=== PATIENT | female | born 1955 | race African-American/Black ===

== ENCOUNTER 2018-05-10 09:59 | Inpatient (IN) | payer MEDICARE ==
--- NOTE | 2018-05-05 02:17 | NUR ---
AMBULATES TO REST ROOM WITH STAND BY ASSISTANCE.VOIDED.PT BACK TO BED.USING ICS.SCD IS IN PLACE.HOB IS ELEVATED. Addendum: 05/11/18 at 0226 by Conchis Lees RN WRONG DATE.
[2018-05-07 12:45] LABS: BASOPHILS % 0.2 % (0.0-1.0); EOSINOPHILS # (AUTO) 0.1 (0.0-0.4); EOSINOPHILS % 1.4 % (0.0-6.0); HEMATOCRIT 35.9 % (34.2-44.1); LYMPHOCYTES # (AUTO) 1.5 (1.0-3.2); LYMPHOCYTES % 15.8 % (18.0-39.1); MEAN CORPUSCULAR HEMOGLOBIN 26.5 pg (28-32); MEAN CORPUSCULAR HGB CONC 30.6 g/dL (31-35); MEAN CORPUSCULAR VOLUME 86.5 fL (81-99); MONOCYTES # (AUTO) 0.7 (0.2-0.8); MONOCYTES % 7.8 % (4.4-11.3); NEUTROPHILS % 74.3 % (38.7-80.0); PLATELET COUNT 321 x10e3/uL (140-360); RED BLOOD COUNT 4.15 x10e6/uL (3.6-5.1); RED CELL DISTRIBUTION WIDTH 15.3 % (11.7-14.4)
[2018-05-07 13:00] LABS: CALCIUM 9.5 mg/dL (8.4-10.2); CREATININE, SERUM 1.36 mg/dL (0.57-1.11)
--- NOTE | 2018-05-07 13:23 | Diagnostic Imaging Report ---
Frontal and lateral views of the chest. HISTORY: PRE ADMIT, gastric sleeve surgery COMPARISON: None available. DISCUSSION: Soft tissue attenuation partially limits sensitivity of the exam. Lungs: Low lung volumes result in bibasilar vascular crowding, accentuation of the pulmonary interstitial markings, central pulmonary vasculature, and the cardiac silhouette. Allowing for these limitations, the findings are as follows: No evidence of a consolidative pneumonia or pulmonary alveolar edema. Pleura: No pleural effusion or pneumothorax. Heart and mediastinum: The cardiomediastinal silhouette appears unremarkable. Bones: No acute osseous lesion. Other: Metallic clips in the right upper quadrant of the abdomen are compatible with prior cholecystectomy. IMPRESSION: No acute radiographic abnormality. Signed by: Dr. Gerald Cristobal D.O., M.M.M. on 05/07/2018 1:19 PM
[~2018-05-10] VITALS: Ht 162.6 cm; Wt 136.1 kg
[~2018-05-10 09:59] MED LIST: ASPIRIN81 MG PO; CARVEDILOL12.5 MG PO; FUROSEMIDE40 MG PO; LOSARTAN POTAS100 MG PO; TRESIBA; Z ACTOPLUS MET; Z.0.ACCUPRIL40 MG; Z.0.CLONIDINE HCL0.1 PO; Z.0.NORVASC10 MG; Z.1.HYDROCHLOROTH12.
--- OUTSIDE RECORDS SUMMARY | 2018-05-10 10:01 | XMS REPORT ---
Author [facility] Address Unknown Phone Unavailable Care Team Providers Care Child Guidance Counselor Name Role Phone Gene RING Unavailable Unavailable Problems This patient has no known problems. Allergies, Adverse Reactions, Alerts This patient has no known allergies or adverse reactions. Medications This patient has no known medications. Encounters Start Date/Time End Date/Time Encounter Type Admission Type Attending [facility] Facility Care Department Encounter ID 2017-10-16 09:10:41 2017-10-16 09:10:41 Outpatient [facility] [id number] 2017-10-02 00:00:00 2017-10-02 00:00:00 Outpatient [facility] [id number] 2017-09-16 00:00:00 2017-09-16 00:00:00 Outpatient [facility] [id number] 2017-09-10 08:27:27 2017-09-10 08:27:27 Outpatient [facility] [id number] 2017-09-10 07:20:11 2017-09-10 07:20:11 Outpatient [facility] [id number] 2017-08-21 08:39:23 2017-08-21 08:39:23 Outpatient [facility] [id number] 2017-07-31 17:06:12 2017-07-31 17:06:12 Outpatient [facility] [id number] 2017-07-31 15:19:59 2017-07-31 15:19:59 Outpatient [facility] [id number] 2017-07-06 15:39:54 2017-07-06 15:39:54 Outpatient [facility] [id number] 2017-06-24 00:00:00 2017-06-24 00:00:00 Outpatient [facility] [id number] 2017-06-12 00:00:00 2017-06-12 00:00:00 Outpatient [facility] [id number] 2017-06-09 09:51:31 2017-06-09 09:51:31 Outpatient [facility] [id number] 2017-06-09 08:01:12 2017-06-09 08:01:12 Outpatient [facility] [id number] 2017-05-14 00:00:00 2017-05-14 00:00:00 Outpatient [facility] [id number] 2017-05-12 00:00:00 2017-05-12 00:00:00 Outpatient [facility] [id number] 2017-05-01 09:34:51 2017-05-01 09:34:51 Outpatient [facility] [id number] 2017-05-01 08:06:34 2017-05-01 08:06:34 Outpatient [facility] [id number] 2016-10-15 14:00:15 2016-10-15 14:00:15 Outpatient [facility] [id number] 2016-10-15 13:12:52 2016-10-15 13:12:52 Outpatient [facility] [id number] 2016-10-06 07:14:25 2016-10-06 07:14:25 Outpatient [facility] [id number] 2016-10-06 00:00:00 2016-10-06 00:00:00 Outpatient [facility] [id number] 2016-09-24 11:18:31 2016-09-24 11:18:31 Outpatient [facility] [id number] 2016-09-24 00:00:00 2016-09-24 00:00:00 Outpatient [facility] [id number] 2016-06-02 12:56:10 2016-06-02 12:56:10 Outpatient [facility] [id number] 2016-05-30 14:54:52 2016-05-30 14:54:52 Outpatient [facility] [id number] 2016-05-30 14:53:54 2016-05-30 14:53:54 Outpatient [facility] [id number] Results Test Description Test Time Test Comments Text Results Atomic Results Result Comments CHEST 2 VIEWS 2018-05-07 13:18:00 [place] [address] Patient Name: DUY THURSTON MR #: [id number] : 1955 Age/Sex: 63/F Req #: [id number] Adm Physician: Ordered by: SHARMILA RING MD Report #: [id number] Location: OR Room/Bed: Procedure: [id number] DX/CHEST 2 VIEWS Exam Date: 05/07/18 Exam Time: 1220 REPORT STATUS: Signed Frontal and lateral views of the chest. HISTORY: PRE A DMIT, gastric sleeve surgery COMPARISON: None available. DISCUSSION: Soft tissue attenuation partially limits sensitivity of the exam. Lungs: Low lung volumes result in bibasilar vascular crowding, accentuation of the pulmonary interstitial markings, central pulmonary vasculature, and the cardiac silhouette. Allowing for these limitations, the findings are as follows: No evidence of a consolidative pneumonia or pulmonary alveolar edema. Pleura: No pleural effusion or pneumothorax. Heart and mediastinum: The cardiomediastinal silhouette appears unrem arkable. Bones: No acute osseous lesion. Other: Metallic clips in the right upper quadrant of the abdomen are compatible with prior cholecystectomy. IMPRESSION: No acute radiographic abnormality. Signed by: Nicholas JohnstonOTosin, M.M.M. on 05/07/2018 1:19 PM Dictated By: MATTHEW CAMPA DO 1319 Transcribed By: ZEENAT on 05/07/188 COPY TO: SHARMILA RING MD
[2018-05-10] MEDS ORDERED: CEFAZOLIN SOD 2 GM/D5W 50ML 50 ML IV ONE (10:17)
[2018-05-10] MEDS ORDERED: ACETAMINOPHEN 1000 MG/100 ML 100 ML IV ONE (10:44)
[2018-05-10] MEDS ORDERED: FAMOTIDINE 20 MG/2 ML VIAL IV ONE (10:44)
[2018-05-10] MEDS ORDERED: LIDOCAINE HCL (LTA) 4 ML SOLN ONE (10:44)
[2018-05-10] MEDS ORDERED: MORPHINE SULFATE 2 MG/ML SYR IV PRN (10:45)
[2018-05-10] MEDS ORDERED: SCOPOLAMINE 1.5 MG PATCH TOP SCH (11:30)
[2018-05-10] MEDS ORDERED: LABETALOL HCL 20 ML ONE (12:33)
[2018-05-10] MEDS ORDERED: HYDRALAZINE HCL 20 MG/ML VIAL ONE (12:53)
--- NOTE | 2018-05-10 14:12 | Operative Report ---
DATE OF PROCEDURE: May 10, 2018 PREOPERATIVE DIAGNOSES 1. Morbid obesity, body mass index 52. 2. Diabetes mellitus. 3. Hypertension. POSTOPERATIVE DIAGNOSES 1. Morbid obesity, body mass index 52. 2. Diabetes mellitus. 3. Hypertension. PREOP INDICATIONS: Treat disease, prevent complications related to comorbid conditions of obesity. PROCEDURE: Laparoscopic vertical sleeve gastrectomy. ANESTHESIA: General. SANDER MACHINE: Munir Benedict, surgical airplane first officer (needed due to complexity of case). FLUIDS: 1 liter of crystalloid. EBL: 30 mL. DRAINS: None. COMPLICATIONS: None. SPECIMENS: Partial stomach. GRAFTS: None. FINDINGS 1. Normal upper GI anatomy. 2. Negative intraoperative EGD leak test. PROCEDURAL DETAILS: The patient was brought to the operating room and was intubated under general endotracheal anesthesia. She was positioned supine with both arms abducted and all pressure points appropriately padded. She was sterilely prepped and draped in the usual fashion. A preprocedure pause was performed, identifying the patient's name, perioperative antibiotics, intended procedure, and staff surgeon. A primary 5-mm left subcostal incision was made, and a Veress needle was inserted to insufflate the abdomen to a pressure of 15 mmHg pressure. A 0-degree, 5-mm Optiview trocar was placed under direct visualization. No injuries were noted. Four additional trocars were placed in the standard positions. The liver retractor was used to expose the hiatus in the proximal stomach. I began my dissection by mobilizing the greater curvature of the stomach by ligating the gastroepiploic and posterior short gastric vessels using the [place] LigaSure device. This dissection was from about 4 cm proximal to the pyloric valve to the left wilian of the diaphragm. Once this was completed, an adult-size endoscope was placed along the lesser curvature of the stomach to be used as a bougie. The greater curvature of the stomach was excised using multiple firings of an 16-mm purple-load Endo OUMAR Covidien stapling device reinforced with Seamguard. The greater curvature specimen was then removed through the right periumbilical port site. An intraoperative EGD leak test was performed, and no leaks were identified. I then achieved and verified hemostasis. I closed the large port site with #0 Vicryl suture using the Ck-Laure technique in a figure-of-8 fashion. The liver retractor was removed, the abdomen was desufflated, and all the trocars were removed. We closed the incision sites with 4-0 Monocryl suture in subcuticular fashion and applied 0.25% bupivacaine in both the preperitoneal incision sites. Dermabond dressings were applied. The patient tolerated the procedure well. Type of wound was type 2, clean and contaminated. All surgical sponge and instrument counts were correct. Job#: [id number]
[2018-05-10] MEDS ORDERED: FENTANYL CITRATE/PF 100MCG/2 ML INJ ONE ×2 (14:58→18:37)
[2018-05-10 15:54] VITALS: BP 197/88
--- NOTE | 2018-05-10 16:00 | NUR ---
Blood pressure noted to be elevated. 197/88. Rechecked manually and noted at 180/88. Call placed to MD to renew home medications
[2018-05-10] MEDS: CARVEDILOL 12.5 MG TAB PO SCH (16:51)
--- NOTE | 2018-05-10 16:52 | NUR ---
Received patient from OR. Patient breathing even and unlabored no signs of distress noted. Call light within reach, bed in lowest position, wheels locked, side rails up x2. Patient notified to call for assistance during ambulation.
[2018-05-10 17:01] VITALS: BP 180/88
--- NOTE | 2018-05-10 17:09 | NUR ---
Patient A/O X3. Breathing unlabored, no signs of distress. Last bowel movement 05/09/18. Bowel sounds present. Incision sites are clean, dry, and intact. Knee-high damaris hose in place and sequential compression device bilaterally. Patient has voided since surgery. Non-skid socks on patient, call light in reach, bed in lowest position, wheels locked. Will continue to monitor.
[2018-05-10] MEDS ORDERED: LIDOCAINE HCL 2% LOCAL INJ 5 ML SDV VIAL INJ ONE (18:15)
[2018-05-10] MEDS ORDERED: EPHEDRINE SULFATE INJ 50 MG/10 ML SYR ONE (18:15)
[2018-05-10] MEDS ORDERED: PROPOFOL IV EMULSION 10 MG/ML 20 ML VIAL ONE (18:15)
[2018-05-10] MEDS ORDERED: GLYCOPYRROLATE INJ 1MG/ 5 ML SYR ONE (18:15)
[2018-05-10] MEDS ORDERED: DEXAMETHASONE SOD PHOS INJ 4 MG/ML VIAL ONE (18:15)
[2018-05-10] MEDS ORDERED: ROCURONIUM BROMIDE 10 MG/ML 5ML VIAL ONE (18:15)
[2018-05-10] MEDS ORDERED: ONDANSETRON HCL INJ 2 MG/ML VIAL ONE (18:15)
[2018-05-10] MEDS ORDERED: SEVOFLURANE INHAL SOLN 250 ML PEN BTL ONE (18:15)
[2018-05-10] MEDS: SODIUM CHLORIDE 0.9% 1000ML 1,000 ML IV SCH ×2 (18:25→18:39)
[2018-05-10] MEDS: MORPHINE SULFATE INJ 4 MG/ML INJ IV PRN ×2 (18:26→21:45)
[2018-05-10] MEDS: ONDANSETRON HCL INJ 2 MG/ML VIAL IV PRN (18:26)
[2018-05-10] MEDS ORDERED: MIDAZOLAM HCL 2 MG/2 ML VIAL ONE (18:37)
[2018-05-10 18:49] VITALS: BP 197/88
--- NOTE | 2018-05-10 19:45 | NUR ---
REPORT TAKEN FROB MORNING RN.WALKING ROUNDS DONE.PT IS LETHARGIC.STATED THAT FEELS DIZZY.MD SMALL IN THE UNIT TO SEE THE PT.BP SHOWING HIGH. ORDERED TO GIVE BP MEDICINES PO AT BED TIME.BLOOD SUGAR MONITORED.NO RESP.DISTRESS.NO PAIN VOICED.IV NS RUNNING @ 75 ML/HR.5 TROCAR SITES NOTED ON ABDOMEN.DRY AND INTACT.BED LOCKED AND IN LOWEST POSITION.PHONE AND CALL LIGHT WITHIN REACH.INSTRUCTED TO CALL FOR ASSISTANCE NEEDED.
[2018-05-10 20:00] VITALS: BP 207/94
[2018-05-10 20:30] VITALS: BP 207/94
[2018-05-10] MEDS ORDERED: CLONIDINE HCL 0.1 MG TAB PO SCH (21:00)
[2018-05-10] MEDS: HYDRALAZINE HCL 25 MG TAB PO SCH (21:41)
[2018-05-10] MEDS: ENOXAPARIN SOD INJ 40 MG/0.4 ML SYR SC SCH (21:45)
--- NOTE | 2018-05-10 22:05 | History and Physical ---
DATE OF SERVICE: May 10, 2018. CHIEF COMPLAINT: "I had weight loss surgery today." HISTORY OF PRESENT ILLNESS: This is a 63-year-old woman who underwent successful laparoscopic sleeve gastrectomy today. The patient suffers from extreme obesity that complicates her underline hypertension, type 2 diabetes mellitus, end stage 3 chronic kidney disease. The patient currently voices no complaints. On May 07, 2018, she had BUN and creatinine of 22 and 1.36 respectively. The patient's hemoglobin on the same day was 11 g/dL. The patient had chest x-ray done on May 07, 2018, which revealed no acute radiographic abnormality, but did reveal a slightly enlarged cardiac silhouette with accentuation of pulmonary interstitial markings as well as central pulmonary vasculature. REVIEW OF SYSTEMS GENERAL: The patient lost 10 pounds by only drinking liquid diet in 1 week prior to bariatric surgery. No fever or chills. HEENT: No headaches. No visual changes. CARDIOVASCULAR/RESPIRATORY: No chest pain. No shortness of breath or cough. GI: No nausea, vomiting, or constipation. : No dysuria. No UTI symptoms. She has no Mota catheter in place and she has already voided. NEUROMUSCULAR: No limb weakness or numbness. PAST MEDICAL HISTORY 1. Hypertensive heart disease. 2. Type 2 diabetes mellitus. 3. Stage 3 chronic kidney disease. 4. Extreme obesity, calculated body mass index 51. PAST SURGICAL HISTORY 1. Total abdominal hysterectomy. 2. Bilateral tubal ligation. 3. Cholecystectomy. 4. Kidney biopsy. FAMILY HISTORY: Multiple family members with hypertension. Father of a stroke. Mother of complications from diabetes mellitus and end-stage renal disease. SOCIAL HISTORY: The patient is single. Lives alone. She teaches prekindergarten. No tobacco use. Drinks alcohol rarely, perhaps once a month. She is a . ALLERGIES: NONE KNOWN TO DRUGS. HOME MEDICATIONS 1. Aspirin 81 mg daily. 2. Carvedilol 25 mg b.i.d. 3. Clonidine 0.1 mg nightly. 4. Furosemide 40 mg daily. 5. Losartan 100 mg daily. 6. Tresiba insulin 22 units subcutaneous daily. 7. Proair inhaler 2 puffs q.i.d. as needed for shortness of breath and wheezing. 8. Lasix 40 mg daily. 9. Hydralazine 100 mg t.i.d. PHYSICAL EXAMINATION GENERAL: She is awake, alert, and fully oriented, in no distress, pleasant and cooperative with exam. VITAL SIGNS: Height is 5 feet 4 inches. Weight is 300 pounds. Blood pressure 197/98, pulse 72, respiratory rate 16, temperature 96.9, oxygen saturation 94%. INTEGUMENT: Skin is warm and dry. No pallor, jaundice, or diaphoresis. HEENT: Anicteric sclerae. Moist mucous membranes. NECK: Supple. CARDIOVASCULAR: Regular rate and rhythm with systolic ejection murmur and S3 gallop. LUNGS: No rales, no rhonchi, no wheezes. ABDOMEN: Obese and benign. EXTREMITIES: No edema or deformity. She has sequential compression devices in place. NEUROLOGICAL: Intact. DIAGNOSES 1. Status post laparoscopic sleeve gastrectomy. 2. Hypertensive heart disease. 3. Type 2 diabetes mellitus. 4. Stage 3 chronic kidney disease. 5. Extreme obesity, calculated body mass index 51, complicating underlying hypertensive heart disease and type 2 diabetes mellitus. 6. Cardiomegaly, likely with diastolic heart failure. PLAN 1. Decrease intravenous fluids. 2. Blood pressure control. 3. Renew home medications. 4. Follow renal function. 5. Encourage incentive spirometry use. 6. Start enoxaparin for deep vein thrombosis prophylaxis. 7. Nebulizer therapy. I would like to thank Dr. Santos for involving me in the care of his patient. Job#: [id number] GE MTDD
--- NOTE | 2018-05-10 22:30 | NUR ---
BP CHECKED AND NOTED 170/84.VOIDED.
[2018-05-11] VITALS: BP 165/70
--- NOTE | 2018-05-11 00:20 | NUR ---
ASSISTED THE PT TO AMBULATES IN THE [address].TOLERATING ICE CHIPS.USING ICS.
[2018-05-11] MEDS: ONDANSETRON HCL INJ 2 MG/ML VIAL IV PRN ×2 (01:35→08:10)
[2018-05-11] MEDS: MORPHINE SULFATE INJ 4 MG/ML INJ IV PRN ×2 (01:35→08:10)
[2018-05-11 04:00] VITALS: BP 172/72
--- NOTE | 2018-05-11 04:00 | NUR ---
SLEPT WELL DURING NIGHT.STABLE CONDITION.
[2018-05-11] MEDS: SODIUM CHLORIDE 0.9% 1000ML 1,000 ML IV SCH (04:59)
--- NOTE | 2018-05-11 06:00 | NUR ---
BP CHECKED AND NOTED 160/72 MM OF HG.
[2018-05-11 06:25] LABS: BASOPHILS % 0.1 % (0.0-1.0); HEMOGLOBIN 10.2 g/dL (12.0-16.0); LYMPHOCYTES % 8.7 % (18.0-39.1); MEAN CORPUSCULAR HEMOGLOBIN 26.7 pg (28-32); MEAN CORPUSCULAR HGB CONC 30.9 g/dL (31-35); MEAN CORPUSCULAR VOLUME 86.4 fL (81-99); MONOCYTES % 8.8 % (4.4-11.3); NEUTROPHILS % 81.9 % (38.7-80.0); PLATELET COUNT 311 x10e3/uL (140-360); RED BLOOD COUNT 3.82 x10e6/uL (3.6-5.1); RED CELL DISTRIBUTION WIDTH 15.4 % (11.7-14.4)
[2018-05-11 06:43] LABS: CALCIUM 8.7 mg/dL (8.4-10.2); CREATININE, SERUM 1.51 mg/dL (0.57-1.11); MAGNESIUM 1.9 MG/DL (1.3-2.1); PHOSPHORUS 3.9 MG/DL (2.3-4.7)
[2018-05-11 06:44] LABS: ALBUMIN 3.2 g/dL (3.5-5.0); ALBUMIN/GLOBULIN RATIO 0.8 (0.8-2.0)
--- NOTE | 2018-05-11 07:00 | NUR ---
REPORT GIVEN TO THE ONCOMING RN.WALKING ROUNDS DONE.STABLE CONDITION.
--- NOTE | 2018-05-11 07:33 | NUR ---
Progress Note S: No complaints O: AF, VSS; Labs reviewed, creatinine stable at 1.51 Gen- no acute distress Abd- soft, incisions c/d/i A/P: POD 1, s/p Lap sleeve gastrectomy -Clears, ambulate, IS, OOB to chair, DC Home -F/u with me in 1 week Randolph Santos MD, FACS Bariatric surgeon
--- NOTE | 2018-05-11 07:36 | NUR ---
Received patient and walking rounds complete. Patient is resting in chair, no signs of distress noted. Call light in reach.
[2018-05-11] MEDS ORDERED: HYDROCODONE/APAP 7.5MG-325MG 1 EA TAB PO PRN (08:00)
--- NOTE | 2018-05-11 08:21 | Discharge Summary ---
ADMIT DIAGNOSES 1. Extreme obesity. Calculated body mass index 51 complicating underlying hypertensive heart disease and type 2 diabetes mellitus. 2. Type 2 diabetes mellitus. 3. Stage 3 chronic kidney disease. 4. Hypertensive heart disease. DISCHARGE DIAGNOSES 1. Status post laparoscopic sleeve gastrectomy. 2. Extreme obesity. Calculated body mass index of 51 complicating underlying hypertensive heart disease and type 2 diabetes mellitus. 3. Hypertensive heart disease. 4. Type 2 diabetes mellitus. 5. Stage 3 chronic kidney disease. HOSPITAL COURSE: This is a 63-year-old woman who was admitted to [facility] with the diagnosis of extreme obesity, calculated body mass index of 51 complicating underlying hypertensive heart disease and type 2 diabetes mellitus. During this hospitalization, the patient underwent successful laparoscopic sleeve gastrectomy, which was performed by her bariatric surgeon, Dr. Randolph Santos. Her hospitalization was unremarkable. On admission, the patient's BUN and creatinine was 22 and 1.36 respectively. On discharge, the patient's BUN and creatinine was 21 and 1.51 respectively. On discharge, the patient was tolerating a clear liquid diet. DISCHARGE MEDICATIONS 1. Hydralazine 100 mg t.i.d. 2. Clonidine 0.1 mg at bedtime. 3. Carvedilol 25 mg b.i.d. 4. Losartan 100 mg daily. 5. Tresiva insulin 22 units subcutaneous daily. 6. Aspirin 81 mg daily. 7. Furosemide 40 mg daily. 8. Proair inhaler 2 puffs q.i.d. p.r.n. for shortness of breath or wheezing. 9. Tramadol 50 mg 1 every 6 hours p.r.n. pain, 25 prescribed. 10. Tylenol No. 3 one every 4 hours p.r.n. moderate pain, 20 prescribed and no refills. FOLLOWUP INSTRUCTIONS: The patient will be discharged home with home health nursing. The patient has several home health nursing aids, which include monitoring and control of her hypertension, as well as monitoring her chronic kidney disease. The patient will follow up with Dr. Randolph Santos within 1 week. The patient will follow up with her primary care physician, namely Dr. Boy Damian within 2 weeks. MONTE ORAHOOD, MD Job#: [id number] RI cc:MD BOY MCGUIRE MD
--- NOTE | 2018-05-11 08:24 | NUR ---
Ambulated with patient down the rodriguez to the nursing station and back. No signs of distress noted.
[2018-05-11 08:42] VITALS: BP 203/80
[2018-05-11] MEDS ORDERED: LOSARTAN POTASSIUM 100 MG TAB PO SCH ×2 (09:00)
[2018-05-11] MEDS ORDERED: HYDROCHLOROTHIAZIDE 25 MG TAB PO SCH (09:00)
[2018-05-11] MEDS: HYDRALAZINE HCL 25 MG TAB PO SCH (09:18)
[2018-05-11] MEDS: ENOXAPARIN SOD INJ 40 MG/0.4 ML SYR SC SCH (09:18)
[2018-05-11] MEDS: CARVEDILOL 12.5 MG TAB PO SCH (09:18)
[2018-05-11 10:15] VITALS: BP 203/80
--- NOTE | 2018-05-11 10:25 | NUR ---
Nutrition Screen Note RD Recommendation for Physician: - Advance to full liquid diet as tolerated - Rec Ensure Max ( Chocolate ) BID for POD2 if stay in hospital Plan of Care: RD following, monitoring for tolerance and adequacy Nutrition reason for involvement: MD consult - bariatric diet Primary Diagnose(s): Status post laparoscopic sleeve gastrectomy on 05/10 PMH: hypertension, type 2 diabetes mellitus, end stage 3 chronic kidney disease, extreme obesity Ht: 64in Wt: 300lb BMI: 51.5kg/m2 IBW: 120lb RD Assessment: (05/11) Chart reviewed. Labs and meds reviewed. 63yo F, who is s/p laparoscopic sleeve gastrectomy on 05/10. Visited pt in the room. Pt was doing very well after surgery. Pt was tolerating clear liquid this AM. No nausea or vomiting reported. RD discussed progression of bariatric diet (clear liquid>full liquid>thin puree>thick puree). All questions have answered. Recommended pt to f/u as outpatient for further monitoring. Current Diet: bariatric clear liquid Malnutrition Evaluation (05/11/2017) The patient does not meet criteria for a specified degree of malnutrition at this time. Will re-evaluate at follow-up as appropriate. Diet Education Needs Assessment: Diet education indicated, pt is agreeable with plan. Nutrition Care Level: low Signed: Lyn Loomis, MS, RD, LD
--- NOTE | 2018-05-11 10:29 | NUR ---
Patient A/O X3, breathing even and unlabored on room air. Last bowel movement (05/09/18), bowel sounds present. Patient is ambulatory. Skin is intact, incision sites are clean, dry, and intact. No complaints of pain or discomfort at this time, will continue to monitor.
[2018-05-11] MEDS ORDERED: ULTRAM50 MG PO (10:36)
[2018-05-11] MEDS ORDERED: TYLENOL WITH C1 EACH PO (10:38)
--- NOTE | 2018-05-11 12:01 | NUR ---
Removed patients IV, catheter tip intact and pressure dressing applied.
[2018-05-11 12:50] VITALS: BP 134/72
--- NOTE | 2018-05-11 13:29 | NUR ---
CM SPOKE TO PATIENT AT BEDSIDE REGARDING MD ORDER FOR PT EVAL AND TREAT. PATIENT INFORMED OF HOME HEALTH SERVICES AND GIVEN CHOICES TO CHOOSE FROM. PATIENT CHOSE [facility]. CHOICE LETTER SIGNED AND PLACED IN CHART. CLINICAL SENT TO [facility] @ [phone]. PENDING ACCEPTANCE.
--- NOTE | 2018-05-11 13:30 | NUR ---
Patient discharged from facility. Patient escorted out in wheelchair and leaving via private auto. Patient gathered all personal belongings. Prescriptions, follow up instructions, and post-op information given with discharge paperwork. No signs of distress noted when leaving facility.
--- NOTE | 2018-05-11 13:32 | NUR ---
PATIENT DISCHARGING HOME WITH HOME HEALTH: [facility]: (P) [phone] (F) [phone] PATIENT AWARE THAT IF THEY DO NOT RECEIVE A CALL FROM COMPANY WITHIN 24 HOURS POST DISCHARGE CALL COMPANY OR CM. CM LEFT CONTACT INFO AT BEDSIDE.
== END 2018-05-11 13:29 | disposition home health service (06) | DRG 620 ==
LOC: OR 09:59 → PACU V 15:27 → MED/SURG 15:38
PROVIDERS: ADMIT Surgery; ATTEND Surgery
PROC: 0DB64Z3 Excision of Stomach, Percutaneous Endoscopic Approach, Vertical (ICD-10-PCS; principal; 2018-05-10 11:30)
DX: E66.01 Morbid (severe) obesity due to excess calories (principal); I13.0 Hypertensive heart and chronic kidney disease with heart failure and stage 1 through stage 4 chronic kidney disease, or unspecified chronic kidney disease; I50.32 Chronic diastolic (congestive) heart failure; Z68.43 Body mass index [BMI] 50.0-59.9, adult; E11.22 Type 2 diabetes mellitus with diabetic chronic kidney disease; N18.3 Chronic kidney disease, stage 3 (moderate); Z79.84 Long term (current) use of oral hypoglycemic drugs; Z79.82 Long term (current) use of aspirin; Z83.3 Family history of diabetes mellitus; Z82.49 Family history of ischemic heart disease and other diseases of the circulatory system; Z82.3 Family history of stroke; Z84.1 Family history of disorders of kidney and ureter
CPT/HCPCS: 36415; 71046; 80048; 80053; 82948; 83735; 84100; 85025; 93005; J0360; J0690; J1100; J1650; J2001; J2250; J2270; J2405; J7030

== ENCOUNTER → 2018-12-02 | Outpatient (CLI) | payer MEDICARE ==
[~2018-12-02] MED LIST changes: +TYLENOL WITH C1 EACH PO; +ULTRAM50 MG PO
--- NOTE | 2018-12-02 20:16 | Myoview Stress Test ---
DATE OF STUDY: 12/02/2018 09:49:00 Stress Test - Treadmill ONLY PROCEDURE TITLE: Rest/stress single isotope SPECT imaging with exercise stress and gated SPECT imaging. INDICATION: Chest pain. PROCEDURE IN DETAIL: The patient performed treadmill exercise using a Sean protocol, exercising for 5 minutes 36 seconds to stage II, and completing estimated workload of 7 metabolic equivalents (METs). The heart rate was 60 beats per minute at rest and increased to 179 beats per minute during the regadenoson infusion. The rest blood pressure was 155/84 mmHg and increased to 217/79 mmHg, which is a hypertensive response. The resting electrocardiogram demonstrated normal sinus rhythm. There were no ST-segment changes suggestive of myocardial ischemia. Myocardial perfusion imaging was performed at rest following the injection of 11 mCi of sestamibi at peak exercise. The patient was injected 33 mCi of sestamibi and exercise was continued for 1 minute. Gated post-stress tomographic imaging was performed. Overall quality of the study is fair. Left ventricular cavity is noted to be normal size on the rest and stress studies. SPECT images demonstrate a medium-sized mild perfusion defect in the anterior wall that improves with stress. Gated SPECT imaging reveals normal myocardial thickening and wall motion. The left ventricular ejection fraction was calculated to be greater than 70%. IMPRESSION: Myocardial perfusion imaging is abnormal. There is a small mild area of ischemia in the anterior wall, cannot rule out attenuation artifact. Overall, left ventricular systolic function is normal without regional wall motion abnormalities. Marie Coronado MD ABS/MODL /[id number]
== END ==
LOC: NM 09:39
PROVIDERS: ATTEND Internal Medicine
DX: R07.9 Chest pain, unspecified (principal)
CPT/HCPCS: 78452; 93017; A9500

== ENCOUNTER 2024-08-17 20:10 | Inpatient (IN) | payer MEDICARE, OTHER ==
[~2024-08-17] VITALS: Ht 162.6 cm; Wt 87.1 kg
[2024-08-17 21:27] LABS: BASOPHILS % 0.1 % (0.0-1.0); HEMATOCRIT 33.3 % (34.2-44.1); HEMOGLOBIN 10.7 g/dL (12.0-16.0); LYMPHOCYTES # (AUTO) 0.5 (1.0-3.2); LYMPHOCYTES % 3.5 % (18.0-39.1); MEAN CORPUSCULAR HEMOGLOBIN 27.9 pg (28-32); MEAN CORPUSCULAR HGB CONC 32.1 g/dL (31-35); MEAN CORPUSCULAR VOLUME 86.9 fL (81-99); MONOCYTES # (AUTO) 0.7 (0.2-0.8); MONOCYTES % 5.5 % (4.4-11.3); NEUTROPHILS % 90.4 % (38.7-80.0); PLATELET COUNT 230 x10e3/uL (140-360); RED BLOOD COUNT 3.83 x10e6/uL (3.6-5.1); RED CELL DISTRIBUTION WIDTH 22.1 % (11.7-14.4); WHITE BLOOD COUNT 13.29 x10e3/uL (4.8-10.8)
[2024-08-17] MEDS: ACETAMINOPHEN 1000 MG/100 ML IV STA (21:39)
[2024-08-17] MEDS: ONDANSETRON HCL INJ 2MG/ML 2ML 2 MG/ML VIAL IV STA (21:40)
[2024-08-17] MEDS: SODIUM CHLORIDE 0.9% 1000ML 1,000 ML IV ONE (21:40)
[2024-08-17 21:50] LABS: ALBUMIN 3.6 g/dL (3.5-5.0); ALBUMIN/GLOBULIN RATIO 1.1 (0.8-2.0); ANION GAP 18.5 mmol/L (8-16); BILIRUBIN,TOTAL 0.7 mg/dL (0.2-1.2); CALCIUM 9.7 mg/dL (8.4-10.2); CREATININE, SERUM 2.26 mg/dL (0.57-1.11); POTASSIUM 4.5 mmol/L (3.5-5.1)
[2024-08-17 23:00] VITALS: TEMP 98.6
[2024-08-17] MEDS ORDERED: DEXTROSE 50% SYRINGE 50 ML IV PRN (23:45)
[2024-08-17 23:54] LABS: BILIRUBIN,URINE NEGATIVE (NEGATIVE); CLARITY,URINE CLEAR (CLEAR); COLOR,URINE YELLOW (YELLOW); GLUCOSE, URINE NEGATIVE (NEGATIVE); KETONES,URINE TRACE (NEGATIVE); LEUKOCYTE ESTERASE ,URINE SMALL (NEGATIVE); NITRITE,URINE NEGATIVE (NEGATIVE); PH,URINE 5.5 (5 - 7); PROTEIN,URINE DIPSTICK 1+ (NEGATIVE); URINE UROBILINOGEN 0.2 mg/dL (0.2 - 1)
[2024-08-18] VITALS (15 sets, daily range): BP systolic 165–184; BP diastolic 51–75; PULSE 59–83; RESP 16–22; TEMP 98.1–98.7; O2SAT 95–100
[2024-08-18 00:32] LABS: BACTERIA,URINE MANY /HPF; EPITHELIAL CELLS,URINE MODERATE /LPF; WBC,URINE (MAN) 21-50 /HPF (0-5)
[2024-08-18] MEDS: Morphine 2mg Syringe 2 MG/ML SYR IV PRN (01:20)
[2024-08-18] MEDS: ONDANSETRON HCL INJ 2MG/ML 2ML 2 MG/ML VIAL IV PRN (01:20)
[2024-08-18] MEDS: SODIUM CHLORIDE 0.9% 1000ML 1,000 ML IV SCH (01:20)
[2024-08-18] MEDS ORDERED: ACETAMINOPHEN 1000 MG/100 ML IV PRN (02:30)
[2024-08-18] MEDS ORDERED: PNEUMOCOCCAL VACCINE POLYVALENT 23 MCG/0.5 ML VIAL IM SCH (04:43)
[2024-08-18] MEDS: SODIUM CHLORIDE 0.9% 250ML IRRIG IR SCH (05:14)
[2024-08-18 06:15] LABS: BASOPHILS % 0.1 % (0.0-1.0); EOSINOPHILS % 0.2 % (0.0-6.0); HEMATOCRIT 28.5 % (34.2-44.1); HEMOGLOBIN 9.3 g/dL (12.0-16.0); LYMPHOCYTES # (AUTO) 0.5 (1.0-3.2); LYMPHOCYTES % 5.8 % (18.0-39.1); MEAN CORPUSCULAR HEMOGLOBIN 28.4 pg (28-32); MEAN CORPUSCULAR HGB CONC 32.6 g/dL (31-35); MEAN CORPUSCULAR VOLUME 86.9 fL (81-99); MONOCYTES # (AUTO) 0.6 (0.2-0.8); MONOCYTES % 6.3 % (4.4-11.3); NEUTROPHILS # (AUTO) 7.9 (2.1-6.9); NEUTROPHILS % 87.3 % (38.7-80.0); PLATELET COUNT 216 x10e3/uL (140-360); RED BLOOD COUNT 3.28 x10e6/uL (3.6-5.1); RED CELL DISTRIBUTION WIDTH 21.9 % (11.7-14.4); WHITE BLOOD COUNT 9.07 x10e3/uL (4.8-10.8)
[2024-08-18 06:38] LABS: ALBUMIN 3.2 g/dL (3.5-5.0); ANION GAP 15.1 mmol/L (8-16); BILIRUBIN,TOTAL 0.5 mg/dL (0.2-1.2); CALCIUM 8.6 mg/dL (8.4-10.2); CREATININE, SERUM 2.14 mg/dL (0.57-1.11); POTASSIUM 4.1 mmol/L (3.5-5.1); TOTAL PROTEIN 6.4 g/dL (6.5-8.1)
[2024-08-18] MEDS ORDERED: ALBUTEROL/IPRATROPIUM 3 ML NEB NEB PRN (07:00)
[2024-08-18] MEDS: INSULIN REGULAR, HUMAN 100 UNIT/1 ML SQ SCH (07:30)
[2024-08-18 07:38] LABS: CHOL/HDL RATIO 2.9 (3.0-3.6)
[2024-08-18 10:35] LABS: LYMPHOCYTES % (MANUAL) 12 % (19-48); MONOCYTES % (MANUAL) 4 % (3.4-9.0); NEUTROPHILS % (MANUAL) 84 % (40-74); PLATELET ESTIMATE ADEQUATE; PLATELET MORPHOLOGY COMMENT NORMAL
[2024-08-18 10:36] LABS: RBC MORPHOLOGY COMMENT NORMAL
[2024-08-18] MEDS: FAMOTIDINE 20 MG/2 ML VIAL IV SCH (11:53)
[2024-08-18] MEDS: HEPARIN SOD (PORCINE) 5,000 UNIT/ML VIAL SC SCH (11:56)
[2024-08-18] MEDS ORDERED: HYDRALAZINE HC100 MG PO (16:39)
[2024-08-18] MEDS ORDERED: MOUNJARO7.5 MG/0.5 SQ (16:39)
[2024-08-18] MEDS ORDERED: CLONIDINE HCL0.3 MG PO (16:39)
[2024-08-18] MEDS ORDERED: DOXAZOSIN MESYLA8 MG PO (16:39)
[2024-08-18] MEDS ORDERED: IRBESARTAN300 MG PO (16:39)
[2024-08-18] MEDS ORDERED: NIFEDIPINE ER90 MG PO (16:39)
[2024-08-18] MEDS ORDERED: ALLOPURINOL100 MG PO (16:39)
[2024-08-18] MEDS: METOPROLOL TARTRATE INJ 1 MG/ML VIAL IV PRN (16:53)
[2024-08-18] MEDS: HYDRALAZINE HCL 20 MG/ML VIAL IV PRN (20:22)
[2024-08-18] MEDS: BISACODYL 10 MG SUPP PR SCH (20:26)
[2024-08-19] VITALS (9 sets, daily range): BP systolic 153–186; BP diastolic 52–69; PULSE 55–65; RESP 18–20; TEMP 98.1–98.6; O2SAT 97–100
[2024-08-19 05:19] LABS: BASOPHILS % 0.4 % (0.0-1.0); EOSINOPHILS % 0.5 % (0.0-6.0); HEMATOCRIT 30.1 % (34.2-44.1); HEMOGLOBIN 9.5 g/dL (12.0-16.0); LYMPHOCYTES # (AUTO) 0.7 (1.0-3.2); LYMPHOCYTES % 8.6 % (18.0-39.1); MEAN CORPUSCULAR HGB CONC 31.6 g/dL (31-35); MEAN CORPUSCULAR VOLUME 88.8 fL (81-99); MONOCYTES # (AUTO) 0.5 (0.2-0.8); NEUTROPHILS # (AUTO) 6.7 (2.1-6.9); NEUTROPHILS % 84.2 % (38.7-80.0); PLATELET COUNT 192 x10e3/uL (140-360); RED BLOOD COUNT 3.39 x10e6/uL (3.6-5.1); RED CELL DISTRIBUTION WIDTH 22.7 % (11.7-14.4); WHITE BLOOD COUNT 7.95 x10e3/uL (4.8-10.8)
[2024-08-19 06:33] LABS: ANION GAP 18.1 mmol/L (8-16); CALCIUM 8.6 mg/dL (8.4-10.2); CREATININE, SERUM 1.98 mg/dL (0.57-1.11); POTASSIUM 4.1 mmol/L (3.5-5.1)
[2024-08-19] MEDS: SODIUM BICARBONATE 8.4% VIAL 100 ML in DEXTROSE 5% 1,000 ML IV SCH (15:35)
[2024-08-19] MEDS: BISACODYL 10 MG SUPP PR SCH (22:38)
[2024-08-20] VITALS (9 sets, daily range): BP systolic 144–188; BP diastolic 60–78; PULSE 58–70; RESP 17–20; TEMP 97.9–99.1; O2SAT 95–100
[2024-08-20 05:50] LABS: ANION GAP 16.6 mmol/L (8-16); CALCIUM 8.6 mg/dL (8.4-10.2); CREATININE, SERUM 1.88 mg/dL (0.57-1.11); POTASSIUM 3.6 mmol/L (3.5-5.1)
[2024-08-20 05:51] LABS: MAGNESIUM 1.9 MG/DL (1.3-2.1); PHOSPHORUS 3.2 MG/DL (2.3-4.7)
[2024-08-20 05:57] LABS: HEMATOCRIT 27.5 % (34.2-44.1); HEMOGLOBIN 8.7 g/dL (12.0-16.0); MEAN CORPUSCULAR HEMOGLOBIN 28.3 pg (28-32); MEAN CORPUSCULAR HGB CONC 31.6 g/dL (31-35); MEAN CORPUSCULAR VOLUME 89.6 fL (81-99); RED BLOOD COUNT 3.07 x10e6/uL (3.6-5.1); WHITE BLOOD COUNT 7.87 x10e3/uL (4.8-10.8)
[2024-08-20 05:58] LABS: BASOPHILS % 0.1 % (0.0-1.0); EOSINOPHILS # (AUTO) 0.1 (0.0-0.4); EOSINOPHILS % 0.6 % (0.0-6.0); LYMPHOCYTES # (AUTO) 0.6 (1.0-3.2); MONOCYTES # (AUTO) 0.5 (0.2-0.8); MONOCYTES % 6.2 % (4.4-11.3); NEUTROPHILS # (AUTO) 6.7 (2.1-6.9); NEUTROPHILS % 85.7 % (38.7-80.0); PLATELET COUNT 212 x10e3/uL (140-360); RED CELL DISTRIBUTION WIDTH 22.2 % (11.7-14.4)
[2024-08-20] MEDS: HYDRALAZINE HCL 20 MG/ML VIAL IV SCH (12:00)
[2024-08-20] MEDS: BISACODYL 10 MG SUPP PR SCH (21:00)
[2024-08-21] VITALS (8 sets, daily range): BP systolic 160–197; BP diastolic 61–80; PULSE 56–74; RESP 16–20; TEMP 97.7–98.8; O2SAT 96–100
[2024-08-21 06:04] LABS: MAGNESIUM 1.7 MG/DL (1.3-2.1)
[2024-08-21 06:17] LABS: PHOSPHORUS 2.4 MG/DL (2.3-4.7)
[2024-08-21] MEDS: CLONIDINE HCL 0.2 MG/24 HR 1 EA PATCH TOP SCH (10:54)
[2024-08-21] MEDS: ALLOPURINOL 100 MG TAB PO SCH (21:56)
[2024-08-22] VITALS (10 sets, daily range): BP systolic 131–181; BP diastolic 60–84; PULSE 71–106; RESP 17–20; TEMP 98.2–98.9; O2SAT 96–100
[2024-08-22] MEDS: DOXAZOSIN MESYLATE 2 MG TAB PO SCH (08:57)
[2024-08-22] MEDS: NIFEDIPINE CR 30 MG TAB PO SCH (09:02)
[2024-08-22] MEDS: BISACODYL 10 MG SUPP PR ONE (12:05)
[2024-08-22 13:00] LABS: BASOPHILS % 0.1 % (0.0-1.0); EOSINOPHILS # (AUTO) 0.1 (0.0-0.4); EOSINOPHILS % 0.7 % (0.0-6.0); HEMOGLOBIN 9.9 g/dL (12.0-16.0); LYMPHOCYTES # (AUTO) 0.6 (1.0-3.2); LYMPHOCYTES % 8.8 % (18.0-39.1); MEAN CORPUSCULAR HGB CONC 31.9 g/dL (31-35); MEAN CORPUSCULAR VOLUME 87.6 fL (81-99); MONOCYTES # (AUTO) 0.5 (0.2-0.8); MONOCYTES % 7.6 % (4.4-11.3); NEUTROPHILS # (AUTO) 5.7 (2.1-6.9); NEUTROPHILS % 81.4 % (38.7-80.0); PLATELET COUNT 220 x10e3/uL (140-360); RED BLOOD COUNT 3.54 x10e6/uL (3.6-5.1); RED CELL DISTRIBUTION WIDTH 21.4 % (11.7-14.4); WHITE BLOOD COUNT 6.96 x10e3/uL (4.8-10.8)
[2024-08-22 13:24] LABS: CALCIUM 8.3 mg/dL (8.4-10.2); CREATININE, SERUM 1.99 mg/dL (0.57-1.11)
[2024-08-22] MEDS ORDERED: DOCUSATE SODIUM 100 MG CAP PO SCH (18:30)
[2024-08-22] MEDS ORDERED: POTASSIUM CHLORIDE 20 MEQ TAB CR PO ONE (18:45)
[2024-08-22] MEDS: DOCUSATE SODIUM 100 MG CAP PO SCH (21:02)
[2024-08-22] MEDS: SENNOSIDES 8.6 MG TAB PO SCH (21:03)
[2024-08-22] MEDS: POTASSIUM CHLORIDE 20 MEQ TAB CR PO ONE (21:04)
[2024-08-22] MEDS: METOPROLOL TARTRATE 25 MG TAB PO SCH (21:05)
[2024-08-23] VITALS: BP 131/50; PULSE 63; RESP 19; TEMP 98.2; O2SAT 97
[2024-08-23 04:00] VITALS: BP 138/49; PULSE 59; RESP 20; TEMP 98.2; O2SAT 99
[2024-08-23 06:29] LABS: ANION GAP 14.1 mmol/L (8-16); CALCIUM 8.3 mg/dL (8.4-10.2); MAGNESIUM 1.6 MG/DL (1.3-2.1); PHOSPHORUS 2.8 MG/DL (2.3-4.7)
[2024-08-23 06:39] LABS: POTASSIUM 3.1 mmol/L (3.5-5.1)
[2024-08-23 08:04] VITALS: BP 142/62; PULSE 58; RESP 16; TEMP 98.5; O2SAT 95
[2024-08-23 08:40] VITALS: PULSE 76; RESP 18; O2SAT 95
[2024-08-23] MEDS ORDERED: Docusate Sodium PO (09:19)
[2024-08-23] MEDS ORDERED: SENOKOT8.6 MG PO (09:19)
[2024-08-23] MEDS ORDERED: SODIUM BICARBO650 MG PO (09:19)
[2024-08-23] MEDS ORDERED: ONDANSETRON ODT4 MG PO (09:21)
[2024-08-23] MEDS: POTASSIUM CHLORIDE 20 MEQ TAB CR PO ONE (09:48)
[2024-08-23 11:35] VITALS: BP 152/66; PULSE 71; RESP 21; TEMP 97.9; O2SAT 99
[2024-08-23 12:20] VITALS: BP 152/66; PULSE 71; RESP 21; TEMP 97.9; O2SAT 99
== END 2024-08-23 14:30 | disposition home or self-care (01) | DRG 389 ==
LOC: ER 20:30 → ERHOLD 23:45 → MED/SURG2 08-18 01:02
PROVIDERS: ADMIT Internal Medicine; ATTEND Internal Medicine
PROC: 0D9670Z Drainage of Stomach with Drainage Device, Via Natural or Artificial Opening (ICD-10-PCS; principal; 2024-08-17)
DX: K56.600 Partial intestinal obstruction, unspecified as to cause (principal); E87.20 Acidosis, unspecified; J90 Pleural effusion, not elsewhere classified; N39.0 Urinary tract infection, site not specified; N17.9 Acute kidney failure, unspecified; I12.9 Hypertensive chronic kidney disease with stage 1 through stage 4 chronic kidney disease, or unspecified chronic kidney disease; E11.22 Type 2 diabetes mellitus with diabetic chronic kidney disease; N18.30 Chronic kidney disease, stage 3 unspecified; E86.0 Dehydration; E27.8 Other specified disorders of adrenal gland; E66.9 Obesity, unspecified; Z68.33 Body mass index [BMI] 33.0-33.9, adult; Z90.49 Acquired absence of other specified parts of digestive tract; Z98.84 Bariatric surgery status; Z79.82 Long term (current) use of aspirin; Z79.899 Other long term (current) drug therapy
CPT/HCPCS: 36415; 74018; 74022; 74176; 80048; 80053; 80061; 81001; 82948; 83036; 83690; 83735; 84100; 84132; 85025; 93005; 94799; 99252; 99285; J0360; J1644; J2270; J2405; J2470; J2543; J7030; J7050; J7070

== ENCOUNTER 2024-09-24 16:36 | Inpatient (IN) | payer MEDICARE ==
[~2024-09-24] VITALS: Ht 160 cm; Wt 89.5 kg
[~2024-09-24 16:36] MED LIST changes: +ALLOPURINOL100 MG PO; +CLONIDINE HCL0.3 MG PO; +DOXAZOSIN MESYLA8 MG PO; +Docusate Sodium PO; +HYDRALAZINE HC100 MG PO; +IRBESARTAN300 MG PO; +MOUNJARO7.5 MG/0.5 SQ; +NIFEDIPINE ER90 MG PO; +ONDANSETRON ODT4 MG PO; +SENOKOT8.6 MG PO; +SODIUM BICARBO650 MG PO
[2024-09-24 16:49] VITALS: TEMP 98.1
[2024-09-24 17:16] LABS: BASOPHILS % 0.1 % (0.0-1.0); HEMATOCRIT 31.6 % (34.2-44.1); HEMOGLOBIN 10.5 g/dL (12.0-16.0); LYMPHOCYTES # (AUTO) 0.3 (1.0-3.2); LYMPHOCYTES % 2.1 % (18.0-39.1); MEAN CORPUSCULAR HEMOGLOBIN 29.7 pg (28-32); MEAN CORPUSCULAR HGB CONC 33.2 g/dL (31-35); MEAN CORPUSCULAR VOLUME 89.5 fL (81-99); MONOCYTES # (AUTO) 0.5 (0.2-0.8); MONOCYTES % 3.8 % (4.4-11.3); NEUTROPHILS # (AUTO) 13.3 (2.1-6.9); NEUTROPHILS % 93.4 % (38.7-80.0); PLATELET COUNT 317 x10e3/uL (140-360); RED BLOOD COUNT 3.53 x10e6/uL (3.6-5.1); RED CELL DISTRIBUTION WIDTH 18.9 % (11.7-14.4); WHITE BLOOD COUNT 14.22 x10e3/uL (4.8-10.8)
[2024-09-24] MEDS: ONDANSETRON HCL INJ 2MG/ML 2ML 2 MG/ML VIAL IV STA (17:37)
[2024-09-24] MEDS: SODIUM CHLORIDE 0.9% 1000ML 1,000 ML IV ONE (17:37)
[2024-09-24] MEDS: Morphine 4mg INJECTION 4 MG/ML INJ IV ONE (17:37)
[2024-09-24 17:40] LABS: ALBUMIN 3.5 g/dL (3.5-5.0); ANION GAP 18.7 mmol/L (8-16); BILIRUBIN,TOTAL 0.8 mg/dL (0.2-1.2); CALCIUM 8.9 mg/dL (8.4-10.2); CREATININE, SERUM 1.76 mg/dL (0.57-1.11); POTASSIUM 3.7 mmol/L (3.5-5.1); TOTAL PROTEIN 6.9 g/dL (6.5-8.1)
[2024-09-24 17:47] LABS: BILIRUBIN,URINE NEGATIVE (NEGATIVE); CLARITY,URINE CLEAR (CLEAR); COLOR,URINE YELLOW (YELLOW); GLUCOSE, URINE NEGATIVE (NEGATIVE); KETONES,URINE NEGATIVE (NEGATIVE); LEUKOCYTE ESTERASE ,URINE NEGATIVE (NEGATIVE); NITRITE,URINE NEGATIVE (NEGATIVE); PH,URINE 5.5 (5 - 7); PROTEIN,URINE DIPSTICK >=300 (NEGATIVE); URINE UROBILINOGEN 0.2 mg/dL (0.2 - 1)
[2024-09-24 17:58] LABS: BACTERIA,URINE MANY /HPF; EPITHELIAL CELLS,URINE MANY /LPF; RBC,URINE 0-5 /HPF (0-5); WBC,URINE (MAN) 0-5 /HPF (0-5)
[2024-09-24] MEDS ORDERED: IOPAMIDOL 370 MG/ML 100 ML INFUS..BTL INJ ONE (18:57)
[2024-09-24] MEDS: SODIUM CHLORIDE 0.9% 1000ML 1,000 ML IV SCH (21:06)
[2024-09-24] MEDS: ONDANSETRON HCL INJ 2MG/ML 2ML 2 MG/ML VIAL IV PRN (21:06)
[2024-09-24] MEDS: HYDRALAZINE HCL 20 MG/ML VIAL IV PRN (21:07)
[2024-09-24] MEDS: Morphine 4mg INJECTION 4 MG/ML INJ IV PRN (21:07)
[2024-09-24 21:34] VITALS: PULSE 89; RESP 18
[2024-09-24 22:00] VITALS: BP 173/80; PULSE 72; RESP 20; TEMP 98.5; O2SAT 99
[2024-09-24 22:03] VITALS: BP 173/80; PULSE 72; RESP 20; TEMP 98.5; O2SAT 100
[2024-09-24 22:12] VITALS: PULSE 71; RESP 18; O2SAT 99
[2024-09-25] VITALS (13 sets, daily range): BP systolic 128–216; BP diastolic 69–96; PULSE 69–106; RESP 18–20; TEMP 98–98.2; O2SAT 95–100
[2024-09-25] MEDS ORDERED: HYDRALAZINE HCL50 MG PO (04:08)
[2024-09-25] MEDS ORDERED: FUROSEMIDE40 MG PO (04:08)
[2024-09-25] MEDS: SODIUM CHLORIDE 0.9% 250ML IRRIG IR SCH (12:15)
[2024-09-25] MEDS ORDERED: DEXTROSE 50% SYRINGE 50 ML IV PRN (12:30)
[2024-09-25] MEDS: HYDRALAZINE HCL 20 MG/ML VIAL IV PRN (13:50)
[2024-09-25] MEDS: INSULIN LISPRO 100 UNIT/1 ML 3ML VIAL SQ SCH (16:30)
[2024-09-26] VITALS (8 sets, daily range): BP systolic 117–219; BP diastolic 74–111; PULSE 75–110; RESP 18–20; TEMP 97.6–98; O2SAT 97–100
[2024-09-26] MEDS: LABETALOL HCL 5 MG/ML 20ML VIAL IV SCH ×2 (07:58→16:49)
[2024-09-26] MEDS: CLONIDINE HCL 0.2 MG/24 HR 1 EA PATCH TOP SCH (08:13)
[2024-09-26] MEDS: LABETALOL HCL 5 MG/ML 20ML VIAL IV ONE (11:08)
[2024-09-26] MEDS: METOPROLOL TARTRATE INJ 1 MG/ML VIAL IV SCH (14:36)
[2024-09-27] VITALS (8 sets, daily range): BP systolic 159–191; BP diastolic 68–160; PULSE 68–79; RESP 18–20; TEMP 97.7–97.9; O2SAT 94–100
[2024-09-27] MEDS: HYDRALAZINE HCL 20 MG/ML VIAL IV PRN (04:22)
[2024-09-27 08:21] LABS: BASOPHILS % 0.2 % (0.0-1.0); HEMATOCRIT 33.2 % (34.2-44.1); HEMOGLOBIN 10.6 g/dL (12.0-16.0); LYMPHOCYTES # (AUTO) 0.6 (1.0-3.2); LYMPHOCYTES % 3.6 % (18.0-39.1); MEAN CORPUSCULAR HEMOGLOBIN 29.4 pg (28-32); MEAN CORPUSCULAR HGB CONC 31.9 g/dL (31-35); MEAN CORPUSCULAR VOLUME 92.2 fL (81-99); MONOCYTES # (AUTO) 0.9 (0.2-0.8); MONOCYTES % 5.7 % (4.4-11.3); NEUTROPHILS # (AUTO) 13.7 (2.1-6.9); NEUTROPHILS % 88.2 % (38.7-80.0); PLATELET COUNT 307 x10e3/uL (140-360); WHITE BLOOD COUNT 15.57 x10e3/uL (4.8-10.8)
[2024-09-27 08:47] LABS: ANION GAP 15.4 mmol/L (8-16); BILIRUBIN,TOTAL 0.4 mg/dL (0.2-1.2); CALCIUM 8.5 mg/dL (8.4-10.2); CREATININE, SERUM 1.84 mg/dL (0.57-1.11); POTASSIUM 3.4 mmol/L (3.5-5.1); TOTAL PROTEIN 5.9 g/dL (6.5-8.1)
[2024-09-27] MEDS ORDERED: LIDOCAINE HCL 2% LOCAL INJ 5 ML SDV VIAL INJ ONE (10:21)
[2024-09-27] MEDS ORDERED: ROCURONIUM BROMIDE 1 ML IV ONE (10:23)
[2024-09-27] MEDS ORDERED: FENTANYL CITRATE/PF 100MCG/2 ML INJ ONE (10:25)
[2024-09-27] MEDS ORDERED: ACETAMINOPHEN 1000 MG/100 ML 100 ML IV ONE (10:25)
[2024-09-27] MEDS ORDERED: PROPOFOL IV EMULSION 10 MG/ML 20 ML VIAL ONE (10:25)
[2024-09-27] MEDS ORDERED: DEXAMETHASONE SOD PHOS INJ 4 MG/ML SDV ONE (10:28)
[2024-09-27] MEDS ORDERED: ONDANSETRON HCL INJ 2MG/ML 2ML 2 MG/ML VIAL ONE (10:28)
[2024-09-27] MEDS ORDERED: SODIUM CHLORIDE 0.9% 100 ML ONE (11:58)
[2024-09-27] MEDS ORDERED: EPHEDRINE SULFATE INJ 50 MG/ML VIAL ONE (12:19)
[2024-09-27] MEDS ORDERED: GLYCOPYRROLATE INJ 0.2 MG/ML VIAL ONE (12:23)
[2024-09-27] MEDS ORDERED: PHENYLEPHRINE HCL 1% 10 MG/ML VIAL ONE (12:52)
[2024-09-27] MEDS ORDERED: SUGAMMADEX SODIUM 200 MG/2 ML VIAL IV ONE (13:20)
[2024-09-27] MEDS: ROPIVACAINE/EPI/CLONIDINE/KET 50 ML SYRINGE INJ ONE (13:37)
[2024-09-27] MEDS ORDERED: ACETAMINOPHEN 1000 MG/100 ML IV PRN (13:45)
[2024-09-27] MEDS: HYDRALAZINE HCL 20 MG/ML VIAL ONE (14:25)
[2024-09-27] MEDS: SODIUM CHLORIDE 0.9% 250ML IRRIG IR SCH (15:24)
[2024-09-27] MEDS: HYDROMORPHONE 2MG/ML IV PRN (18:03)
[2024-09-28] VITALS (10 sets, daily range): BP systolic 160–186; BP diastolic 52–109; PULSE 61–89; RESP 18–20; TEMP 97.3–98.3; O2SAT 94–98
[2024-09-28 08:14] LABS: BASOPHILS % 0.2 % (0.0-1.0); HEMATOCRIT 33.8 % (34.2-44.1); HEMOGLOBIN 10.4 g/dL (12.0-16.0); LYMPHOCYTES # (AUTO) 0.8 (1.0-3.2); LYMPHOCYTES % 3.4 % (18.0-39.1); MEAN CORPUSCULAR HEMOGLOBIN 30.1 pg (28-32); MEAN CORPUSCULAR HGB CONC 30.8 g/dL (31-35); MEAN CORPUSCULAR VOLUME 97.7 fL (81-99); MONOCYTES # (AUTO) 1.3 (0.2-0.8); MONOCYTES % 5.5 % (4.4-11.3); NEUTROPHILS # (AUTO) 20.8 (2.1-6.9); NEUTROPHILS % 90.1 % (38.7-80.0); PLATELET COUNT 250 x10e3/uL (140-360); RED BLOOD COUNT 3.46 x10e6/uL (3.6-5.1); RED CELL DISTRIBUTION WIDTH 19.6 % (11.7-14.4); WHITE BLOOD COUNT 23.13 x10e3/uL (4.8-10.8)
[2024-09-28 08:41] LABS: ANION GAP 15.5 mmol/L (8-16); CALCIUM 8.3 mg/dL (8.4-10.2); CREATININE, SERUM 2.64 mg/dL (0.57-1.11); POTASSIUM 3.5 mmol/L (3.5-5.1)
[2024-09-28 09:43] LABS: BAND NEUTROPHILS % (MANUAL) 2 %; LYMPHOCYTES % (MANUAL) 3 % (19-48); MONOCYTES % (MANUAL) 3 % (3.4-9.0); NEUTROPHILS % (MANUAL) 92 % (40-74)
[2024-09-28 09:45] LABS: ANISOCYTOSIS MODERATE; HYPOCHROMASIA SLIGHT; PLATELET ESTIMATE ADEQUATE; PLATELET MORPHOLOGY COMMENT NORMAL; POLYCHROMASIA FEW; RBC MORPHOLOGY COMMENT ABNORMAL
[2024-09-28] MEDS: HYDRALAZINE HCL 20 MG/ML VIAL IV SCH (10:41)
[2024-09-28] MEDS: CHLORASEPTIC SPRAY 177 ML BTL MM PRN (18:06)
[2024-09-28] MEDS: BISACODYL 10 MG SUPP PR SCH (20:46)
[2024-09-29] VITALS (9 sets, daily range): BP systolic 116–175; BP diastolic 55–90; PULSE 69–96; RESP 12–20; TEMP 97.7–98.2; O2SAT 95–100
[2024-09-29 08:29] LABS: BASOPHILS % 0.2 % (0.0-1.0); EOSINOPHILS % 0.1 % (0.0-6.0); HEMATOCRIT 32.3 % (34.2-44.1); HEMOGLOBIN 9.9 g/dL (12.0-16.0); LYMPHOCYTES # (AUTO) 0.7 (1.0-3.2); LYMPHOCYTES % 3.3 % (18.0-39.1); MEAN CORPUSCULAR HEMOGLOBIN 29.6 pg (28-32); MEAN CORPUSCULAR HGB CONC 30.7 g/dL (31-35); MEAN CORPUSCULAR VOLUME 96.7 fL (81-99); MONOCYTES % 4.7 % (4.4-11.3); NEUTROPHILS # (AUTO) 18.5 (2.1-6.9); NEUTROPHILS % 89.1 % (38.7-80.0); PLATELET COUNT 264 x10e3/uL (140-360); RED BLOOD COUNT 3.34 x10e6/uL (3.6-5.1); RED CELL DISTRIBUTION WIDTH 19.8 % (11.7-14.4); WHITE BLOOD COUNT 20.76 x10e3/uL (4.8-10.8)
[2024-09-29 08:52] LABS: ANION GAP 18.4 mmol/L (8-16); CALCIUM 8.4 mg/dL (8.4-10.2); CREATININE, SERUM 2.56 mg/dL (0.57-1.11)
[2024-09-29 08:58] LABS: POTASSIUM 3.4 mmol/L (3.5-5.1)
[2024-09-29] MEDS ORDERED: HYDRALAZINE HCL 20 MG/ML VIAL IV PRN (12:00)
[2024-09-29] MEDS ORDERED: METOPROLOL TARTRATE INJ 1 MG/ML VIAL IV PRN (12:00)
[2024-09-29] MEDS: METOPROLOL TARTRATE 25 MG TAB PO SCH (12:18)
[2024-09-29] MEDS: SODIUM CHLORIDE 0.45% 1,000 ML IV SCH (12:18)
[2024-09-29] MEDS ORDERED: HYDRALAZINE HCL 25 MG TAB PO SCH (14:00)
[2024-09-29] MEDS: METOPROLOL TARTRATE INJ 1 MG/ML VIAL IV SCH (20:52)
[2024-09-30] VITALS (12 sets, daily range): BP systolic 134–195; BP diastolic 48–85; PULSE 20–84; RESP 16–20; TEMP 97.4–98.4; O2SAT 95–100
[2024-09-30 08:20] LABS: BASOPHILS # (AUTO) 0.1 (0.0-0.1); BASOPHILS % 0.5 % (0.0-1.0); EOSINOPHILS # (AUTO) 0.1 (0.0-0.4); EOSINOPHILS % 0.7 % (0.0-6.0); HEMATOCRIT 32.3 % (34.2-44.1); HEMOGLOBIN 10.1 g/dL (12.0-16.0); LYMPHOCYTES # (AUTO) 0.9 (1.0-3.2); LYMPHOCYTES % 4.9 % (18.0-39.1); MEAN CORPUSCULAR HEMOGLOBIN 29.8 pg (28-32); MEAN CORPUSCULAR HGB CONC 31.3 g/dL (31-35); MEAN CORPUSCULAR VOLUME 95.3 fL (81-99); MONOCYTES # (AUTO) 0.9 (0.2-0.8); MONOCYTES % 5.1 % (4.4-11.3); NEUTROPHILS # (AUTO) 15.8 (2.1-6.9); NEUTROPHILS % 85.4 % (38.7-80.0); PLATELET COUNT 274 x10e3/uL (140-360); RED BLOOD COUNT 3.39 x10e6/uL (3.6-5.1); RED CELL DISTRIBUTION WIDTH 19.9 % (11.7-14.4); WHITE BLOOD COUNT 18.46 x10e3/uL (4.8-10.8)
[2024-09-30 09:08] LABS: ANION GAP 14.4 mmol/L (8-16); CALCIUM 8.6 mg/dL (8.4-10.2); CREATININE, SERUM 2.43 mg/dL (0.57-1.11); POTASSIUM 3.4 mmol/L (3.5-5.1)
[2024-09-30] MEDS: METOPROLOL TARTRATE 25 MG TAB PO SCH ×2 (09:33→20:51)
[2024-09-30] MEDS ORDERED: METOPROLOL TARTRATE 25 MG TAB PO SCH (13:30)
[2024-09-30] MEDS: SODIUM BICARBONATE 650 MG TAB PO SCH (14:44)
[2024-09-30] MEDS ORDERED: METOPROLOL TARTRATE INJ 1 MG/ML VIAL IV PRN (18:15)
[2024-10-01] VITALS (8 sets, daily range): BP systolic 130–178; BP diastolic 47–79; PULSE 61–80; RESP 17–20; TEMP 97.1–98.6; O2SAT 96–100
[2024-10-01] MEDS: METOPROLOL TARTRATE 50 MG TAB PO SCH (15:01)
[2024-10-01 19:12] LABS: ANION GAP 13.3 mmol/L (8-16); CALCIUM 7.9 mg/dL (8.4-10.2); CREATININE, SERUM 1.82 mg/dL (0.57-1.11); POTASSIUM 3.3 mmol/L (3.5-5.1)
[2024-10-01] MEDS: BISACODYL 10 MG SUPP PR SCH (21:00)
[2024-10-02] VITALS (8 sets, daily range): BP systolic 135–182; BP diastolic 45–71; PULSE 61–87; RESP 17–20; TEMP 98–98.2; O2SAT 95–100
[2024-10-02 00:12] LABS: BASOPHILS % 0.2 % (0.0-1.0); EOSINOPHILS # (AUTO) 0.2 (0.0-0.4); EOSINOPHILS % 1.9 % (0.0-6.0); HEMATOCRIT 30.8 % (34.2-44.1); HEMOGLOBIN 9.7 g/dL (12.0-16.0); LYMPHOCYTES # (AUTO) 1.3 (1.0-3.2); LYMPHOCYTES % 12.4 % (18.0-39.1); MEAN CORPUSCULAR HEMOGLOBIN 29.4 pg (28-32); MEAN CORPUSCULAR HGB CONC 31.5 g/dL (31-35); MEAN CORPUSCULAR VOLUME 93.3 fL (81-99); MONOCYTES # (AUTO) 1.1 (0.2-0.8); MONOCYTES % 10.7 % (4.4-11.3); NEUTROPHILS # (AUTO) 7.5 (2.1-6.9); NEUTROPHILS % 71.4 % (38.7-80.0); PLATELET COUNT 271 x10e3/uL (140-360); RED CELL DISTRIBUTION WIDTH 18.7 % (11.7-14.4); WHITE BLOOD COUNT 10.45 x10e3/uL (4.8-10.8)
[2024-10-02] MEDS: HYDROCODONE/APAP 5MG-325MG TAB PO ONE (14:37)
[2024-10-02 16:15] LABS: BASOPHILS % 0.1 % (0.0-1.0); EOSINOPHILS # (AUTO) 0.1 (0.0-0.4); EOSINOPHILS % 1.7 % (0.0-6.0); HEMATOCRIT 23.6 % (34.2-44.1); HEMOGLOBIN 7.4 g/dL (12.0-16.0); LYMPHOCYTES # (AUTO) 0.6 (1.0-3.2); LYMPHOCYTES % 7.2 % (18.0-39.1); MEAN CORPUSCULAR HEMOGLOBIN 29.8 pg (28-32); MEAN CORPUSCULAR HGB CONC 31.4 g/dL (31-35); MEAN CORPUSCULAR VOLUME 95.2 fL (81-99); MONOCYTES # (AUTO) 0.8 (0.2-0.8); MONOCYTES % 9.7 % (4.4-11.3); NEUTROPHILS # (AUTO) 6.2 (2.1-6.9); NEUTROPHILS % 79.4 % (38.7-80.0); PLATELET COUNT 201 x10e3/uL (140-360); RED BLOOD COUNT 2.48 x10e6/uL (3.6-5.1); RED CELL DISTRIBUTION WIDTH 18.7 % (11.7-14.4); WHITE BLOOD COUNT 7.77 x10e3/uL (4.8-10.8)
[2024-10-02] MEDS: ALLOPURINOL 100 MG TAB PO SCH (21:10)
[2024-10-02] MEDS: HYDROCODONE/APAP 5MG-325MG TAB PO PRN (21:13)
[2024-10-02] MEDS: CLONIDINE HCL 0.3 MG TAB PO SCH (22:15)
[2024-10-03] VITALS (7 sets, daily range): BP systolic 128–163; BP diastolic 45–62; PULSE 54–106; RESP 17–20; TEMP 97.9–98.2; O2SAT 100
[2024-10-03 01:53] LABS: ANION GAP 15.5 mmol/L (8-16); CALCIUM 8.2 mg/dL (8.4-10.2); CREATININE, SERUM 1.92 mg/dL (0.57-1.11); POTASSIUM 3.5 mmol/L (3.5-5.1)
[2024-10-03] MEDS ORDERED: CEPHALEXIN500 MG PO (10:50)
[2024-10-03] MEDS ORDERED: TYLENOL325 MG PO (10:50)
[2024-10-03] MEDS ORDERED: METOPROLOL TART50 MG PO (10:50)
== END 2024-10-03 16:07 | disposition home or self-care (01) | DRG 329 ==
LOC: ER 16:44 → ERHOLD 20:53 → MED/SURG2 21:52
PROVIDERS: ADMIT Internal Medicine; ATTEND Internal Medicine
PROC: 0DB80ZZ Excision of Small Intestine, Open Approach (ICD-10-PCS; principal; 2024-09-20)
PROC: 0DN80ZZ Release Small Intestine, Open Approach (ICD-10-PCS; 2024-09-20)
DX: K56.50 Intestinal adhesions [bands], unspecified as to partial versus complete obstruction (principal); K55.011 Focal (segmental) acute (reversible) ischemia of small intestine; N17.0 Acute kidney failure with tubular necrosis; E87.0 Hyperosmolality and hypernatremia; N73.6 Female pelvic peritoneal adhesions (postinfective); I10 Essential (primary) hypertension; E11.65 Type 2 diabetes mellitus with hyperglycemia; E66.9 Obesity, unspecified; Z68.35 Body mass index [BMI] 35.0-35.9, adult; Z90.49 Acquired absence of other specified parts of digestive tract; Z90.710 Acquired absence of both cervix and uterus; Z98.84 Bariatric surgery status; Z79.85 Long-term (current) use of injectable non-insulin antidiabetic drugs
CPT/HCPCS: 36415; 74022; 74177; 80048; 80053; 81001; 82948; 83690; 84484; 85025; 88304; 88307; 93005; 94799; 99284; J0360; J0694; J0696; J1100; J1171; J2003; J2270; J2371; J2405; J2470; J7030; J7050; Q9967